=== PATIENT | male | born 1955 | race Caucasian/White ===

== ENCOUNTER 2017-03-17 15:27 | Inpatient (IN) | payer SELFPAY ==
[~2017-03-17] VITALS: Ht 172.7 cm; Wt 76.2 kg
[2017-03-17] MEDS ORDERED: IV NORMAL SALINE 500 ML IV ONE (16:15)
[2017-03-17 16:22] LABS: CREATININE 0.9 mg/dL (0.6-1.3); POTASSIUM 3.5 mmol/L (3.5-5.1)
[2017-03-17 16:25] LABS: ETHANOL < 3 MG/DL (0-0)
--- NOTE | 2017-03-17 16:35 | NUR ---
PT OUT OF ER FOR CT.
[2017-03-17 16:36] LABS: BASOPHILS % (AUTO) 0.5 % (0.0-2.0); EOSINOPHILS # (AUTO) 0.1 K/uL (0.0-0.7); EOSINOPHILS % (AUTO) 3.5 % (0.0-7.0); HEMATOCRIT 26.6 % (40-50); HEMOGLOBIN 8.9 G/DL (14.0-18.0); LYMPHOCYTES # (AUTO) 0.5 K/UL (0.8-4.8); LYMPHOCYTES % (AUTO) 15.2 % (20.5-51.5); MEAN CORPUSCULAR HEMOGLOBIN 32.6 UUG (27.0-31.0); MEAN CORPUSCULAR HGB CONC 33 g/dL (32.0-37.0); MEAN CORPUSCULAR VOLUME 97.7 FL (82.0-92.0); MONOCYTES # (AUTO) 0.5 K/UL (0.1-1.30); MONOCYTES % (AUTO) 16.1 % (0.0-11.0); NEUTROPHILS # (AUTO) 1.9 K/UL (1.8-8.9); NEUTROPHILS % (AUTO) 64.7 % (38.5-71.5); PLATELET COUNT (AUTO) 82 K/UL (150-450); RED BLOOD CELL COUNT(AUTO) 2.73 MIL/UL (4.7-6.1)
[2017-03-17 16:43] LABS: BILIRUBIN,TOTAL 2.4 mg/dL (0.2-1.0); TOTAL PROTEIN, SERUM 6.4 g/dL (6.4-8.2)
--- NOTE | 2017-03-17 16:46 | NUR ---
PT BACK FROM CT, STATES TIRED WANTS TO REST.
[2017-03-17] MEDS ORDERED: FUROSEMIDE 40 MG/4 ML VIAL IV ONE (18:00)
[2017-03-17] MEDS ORDERED: FUROSEMIDE 40 MG/4 ML VIAL ONE (18:09)
[2017-03-17 18:34] LABS: *BILIRUBIN,URIN NEGATIVE (NEGATIVE); *BLOOD, URINE NEGATIVE (NEGATIVE); *CLARITY,URINE CLEAR (CLEAR); *COLOR,URINE YELLOW (YELLOW); *KETONES,URINE NEGATIVE (NEGATIVE); *PROTEIN,URINE NEGATIVE (NEGATIVE); *UROBILINOGEN,URINE 0.2 E.U./dl (NORMAL); LEUKOCYTE ESTERASE ,URINE NEGATIVE (NEGATIVE); NITRITE, URINE NEGATIVE (NEGATIVE); PH,URINE 5.5 (5.0-8.0); UGLUCOSE NEGATIVE (NEGATIVE)
[2017-03-17 18:40] LABS: *AMPHETAMINE, URINE POSITIVE (NEGATIVE); *BARBITURATE, URINE NEGATIVE (NEGATIVE); *CANNABINOID, URINE POSITIVE (NEGATIVE); *COCCAINE, URINE NEGATIVE (NEGATIVE); *OPIATE, URINE NEGATIVE (NEGATIVE); *PHENCYCLIDINE SCREEN,URINE NEGATIVE (NEGATIVE)
[2017-03-17 18:43] LABS: BACTERIA,URINE NONE SEEN /HPF (NONE SEEN); RBC,URINE 0-3 /HPF (0-3); SQUAMOUS EPITHELIAL CELL,UR NONE SEEN /HPF (NONE SEEN); WBC,URINE 0-3 /HPF (0-3)
--- NOTE | 2017-03-17 18:47 | NUR ---
RECEIVED PATIENT FROM ED 61 YEARS OLD MALE WITH DX OF CHF PLACED INTO BED FIXED AND MADE COMFORTABLE.PATIENT IS ON ROOM AIR AWAKE ALERT VERBALLY RESPONDS PLACED ON TELEMETRY ORIENTED TO ROOM AND FACILITY PROTOCOL ENDORSED THE ADMISSION OF THIS PATIENT TO THE ONCOMING SHIFT.
[2017-03-17 18:50] VITALS: BP 120/66
[2017-03-17] MEDS ORDERED: Z GUARD REMEDY PASTE 57 GM TUBE TOP PRN (19:00)
[2017-03-17] MEDS ORDERED: MAGNESIUM HYDROXIDE 30 ML LIQUID UDC PO PRN (19:00)
[2017-03-17] MEDS ORDERED: ACETAMINOPHEN 325 MG TABLET PO PRN (19:00)
[2017-03-17] MEDS ORDERED: ONDANSETRON 4 MG/2 ML VIAL IV PRN (19:00)
[2017-03-17] MEDS ORDERED: ZOLPIDEM 5 MG TABLET PO PRN (19:00)
--- NOTE | 2017-03-17 19:30 | NUR ---
ADMIT NEW PATIENT WITH DX OF CHF ,PATIENT VERY DROWSY,ORIENTED TO PLACE AND PERSON,UNCLEAR SPEECH,C/O HUNGRY ,DINNER PROVIDED,REFUSE PICTURE TAKEN STATED" FEEL COLD",REQUESTED FOR WARM BLANKET,MULTIPLE SMALL SCABS TO BILATERAL LOWER EXTREMITIES.EKG DONE ORDER, NO CHEST PAIN AT PRESENT TIMES,PATIENT SLEEPS MOST OF TIMES.SAFETY MEASURE MAINTAINS.
[2017-03-17 20:00] VITALS: BP 110/68
[2017-03-17] MEDS: ENOXAPARIN SODIUM 40 MG/0.4 ML DISP.SYRIN SQ SCH (21:00)
[2017-03-17] MEDS: FUROSEMIDE 40 MG/4 ML VIAL IV SCH (21:17)
[2017-03-18 00:34] VITALS: BP 103/45
[2017-03-18 04:00] VITALS: BP 105/50
[2017-03-18 06:21] LABS: BASOPHILS % (AUTO) 1.1 % (0.0-2.0); EOSINOPHILS # (AUTO) 0.1 K/uL (0.0-0.7); HEMATOCRIT 27.6 % (40-50); HEMOGLOBIN 9.2 G/DL (14.0-18.0); LYMPHOCYTES # (AUTO) 0.5 K/UL (0.8-4.8); MEAN CORPUSCULAR HEMOGLOBIN 32.5 UUG (27.0-31.0); MEAN CORPUSCULAR HGB CONC 33 g/dL (32.0-37.0); MEAN CORPUSCULAR VOLUME 97.9 FL (82.0-92.0); MONOCYTES # (AUTO) 0.4 K/UL (0.1-1.30); MONOCYTES % (AUTO) 15.3 % (0.0-11.0); NEUTROPHILS # (AUTO) 1.9 K/UL (1.8-8.9); NEUTROPHILS % (AUTO) 60.6 % (38.5-71.5); PLATELET COUNT (AUTO) 77 K/UL (150-450); RED BLOOD CELL COUNT(AUTO) 2.82 MIL/UL (4.7-6.1); WHITE BLOOD COUNT (AUTO) 2.9 K/UL (4.0-11.2)
[2017-03-18 06:55] LABS: CREATININE 0.9 mg/dL (0.6-1.3); MAGNESIUM 1.7 mg/dL (1.8-2.4); PHOSPHOROUS 3.4 mg/dL (2.5-4.9); POTASSIUM 3.7 mmol/L (3.5-5.1)
--- NOTE | 2017-03-18 07:00 | NUR ---
Patient seen in room resting, with eyes closed, and no acute distressed noted. Easily awaken, respirations unlabored, fall precaution. Call light at reach.
[2017-03-18 07:04] LABS: THYROID STIMULATING HORMONE 0.547 mIU/mL (0.358-3.740)
[2017-03-18 07:57] LABS: EOSINOPHILS % (MANUAL) 5 % (0-8); LYMPHOCYTES % (MANUAL) 24 % (20-40); MONOCYTES % (MANUAL) 13 % (2-10); NEUTROPHILS % (MANUAL) 58 % (42-75)
[2017-03-18] MEDS: PANTOPRAZOLE SODIUM 40 MG TABLET.DR PO SCH (08:25)
[2017-03-18] MEDS: FUROSEMIDE 40 MG/4 ML VIAL IV SCH ×2 (08:26→22:00)
[2017-03-18] MEDS: HYDROCODONE/APAP 5-325MG TABLET PO PRN ×2 (08:30→20:30)
[2017-03-18 11:25] VITALS: BP 92/54
[2017-03-18] MEDS: MAGNESIUM SULFATE/D5W 100 ML IV SCH ×2 (12:40→14:14)
[2017-03-18 15:34] VITALS: BP 102/57
--- NOTE | 2017-03-18 18:17 | NUR ---
End of shift note. Patient with no signs and symptoms of distress throughout shift. VSS. Excellent appetite and nutrition provided. No complaints of pain at this time. Needs meds by staff.
--- NOTE | 2017-03-18 19:40 | NUR ---
Pt alert, oriented and complains of generalized pain 02/26. Denies any chest pain or SOB at this time. Monitoring intake and output. Lovenox SQ on hold d/t low plts 77. IV site on left forearm patent with no phlebitis or infiltration noted.
[2017-03-18 20:00] VITALS: BP 104/60
[2017-03-18] MEDS: ENOXAPARIN SODIUM 40 MG/0.4 ML DISP.SYRIN SQ SCH (20:18)
--- NOTE | 2017-03-18 22:06 | NUR ---
B/P re-checked 90/57 heart rate 57, lasix at bedtime held, will notify MD. Pt feet elevated and head of bed down, will monitor patient.
[2017-03-18 23:11] VITALS: BP 93/50
--- NOTE | 2017-03-19 01:05 | NUR ---
Pt asleep in bed. Blood pressure noted 105/54. Denies any headaches, chest pain, or dizziness. Continue to monitor. No pain at this time.
[2017-03-19 03:16] VITALS: BP 108/55
[2017-03-19] MEDS: PANTOPRAZOLE SODIUM 40 MG TABLET.DR PO SCH (06:17)
[2017-03-19 06:49] LABS: POTASSIUM 4.3 mmol/L (3.5-5.1)
--- NOTE | 2017-03-19 07:40 | NUR ---
Pt alert, oriented and complains of generalized pain 8/10. IV site on left forearm patent with no phlebitis or infiltration noted.breakfast served
[2017-03-19] MEDS: FUROSEMIDE 40 MG/4 ML VIAL IV SCH (08:22)
[2017-03-19 11:36] VITALS: BP 113/64
--- NOTE | 2017-03-19 13:20 | NUR ---
d/c orders received noted and carried out.d/c instructions and educations given to the pt.d/c heplock per md orders.pt refused to go to the senior care,pt d/c to him self.bus token provided
== END 2017-03-19 13:20 | disposition home or self-care (01) | DRG 291 ==
LOC: ER 15:29 → TELE 18:32 → MED 03-18 13:03
DX: I11.0 Hypertensive heart disease with heart failure (principal); K72.00 Acute and subacute hepatic failure without coma; D61.818 Other pancytopenia; K76.6 Portal hypertension; I50.33 Acute on chronic diastolic (congestive) heart failure; B18.2 Chronic viral hepatitis C; Z59.0 Homelessness; Z91.14 Patient's other noncompliance with medication regimen; K74.69 Other cirrhosis of liver
CPT/HCPCS: 36415; 70030-TC; 70450; 80307; 83690; 83735; 84100; 84443; 85025; 85610; 93005; 93307; 97116; 97530; A4663; G0480; J1650; J1940; J3475; J7040; J7050